=== PATIENT | female | born 1970 | race Caucasian/White ===

== ENCOUNTER 2018-06-01 08:24 | Day surgery (SDC) | payer MEDICARE ==
[~2018-06-01 08:24] MED LIST: Buffered Lidocaine 1% SYRIN* 1 ML/SYRINGE INTRADERM ONE; Dexamethasone IV* 4 MG/ML 1 ML (4 MG) IV SLOW PU ONE; Lactated Ringers 1000 ML Bag* 1,000 ML IV SCH
[2018-06-01] MEDS ORDERED: Dexamethasone IV* 4 MG/ML 1 ML (4 MG) ONE (08:31)
[2018-06-01] MEDS ORDERED: ceFAZolin 2 GM in NS PREMIX(*) 2 GM/100 ML BAG IVPB ONE (08:32)
[2018-06-01] MEDS ORDERED: Midazolam* 1 MG/ML 5 ML VIAL (5 MG) ONE (08:41)
[2018-06-01] MEDS ORDERED: fentaNYL* 50 MCG/ML 5 ML VIAL (250 MCG VIAL) ONE (08:41)
[2018-06-01] MEDS ORDERED: Lidocaine 2% PF * 5 ML VIAL ONE (08:42)
[2018-06-01] MEDS ORDERED: Propofol* 10 MG/ML 20 ML BTL ONE (08:42)
[2018-06-01] MEDS ORDERED: Rocuronium* 10 MG/ML VIAL ONE (08:42)
[2018-06-01] MEDS ORDERED: Morphine 4 MG/ML VIAL (1 ml) 4 MG/ML VIAL IV PRN (08:58)
[2018-06-01] MEDS ORDERED: Ketorolac INJ* 30 MG/ML 1 ML VIAL IV PRN (08:58)
[2018-06-01] MEDS ORDERED: Naloxone* 0.4 MG/ML 1 ML VIAL IV PRN (08:58)
[2018-06-01] MEDS ORDERED: PROCHLORPERAZINE INJ 5 MG/ML 2 ML VIAL IV PRN (08:58)
[2018-06-01] MEDS ORDERED: HYDROcodone/ACETAMIN 5-325 MG* 1 TAB PO PRN (08:58)
[2018-06-01] MEDS ORDERED: Bupivacaine 0.25% W/EPI* 10 ML SDV ONE (09:11)
[2018-06-01] MEDS ORDERED: KETAMINE HCL* 50 MG/ML 10 ML VIAL ONE (09:43)
[2018-06-01] MEDS ORDERED: Metoprolol Tartrate IV* 1 MG/ML 5 ML VIAL ONE (09:54)
[2018-06-01] MEDS ORDERED: fentaNYL* 50 MCG/ML 2 ML VIAL (100 MCG VIAL) ONE ×4 (09:57→12:12)
[2018-06-01] MEDS ORDERED: hydrALAZINE IV* 20 MG/ML VIAL ONE (10:00)
[2018-06-01] MEDS ORDERED: Neostigmine Methylsulfate* 3 MG/3 ML SYRINGE ONE (10:33)
[2018-06-01] MEDS ORDERED: Glycopyrrolate IV* 0.2 MG/ML 1 ML VIAL ONE (10:33)
[2018-06-01] MEDS ORDERED: Ondansetron INJ* 2 MG/ML VIAL ONE (10:59)
[2018-06-01] MEDS ORDERED: Ketorolac INJ* 30 MG/ML 1 ML VIAL ONE (11:42)
[2018-06-01] MEDS: fentaNYL* 50 MCG/ML 2 ML VIAL (100 MCG VIAL) IV PRN ×4 (11:45→12:29)
--- NOTE | 2018-06-01 11:48 | BRIEFOPN ---
Brief Operative Note - Surgery Procedures: Preop Diagnosis: Symptomatic cholelithiasis Postop Diagnosis: Same, chronic cholecystitis Procedure: Laparoscopic cholecystectomy Anesthesia: GET Surgeon: Flora Licensed Insurance Sales Agent: Vikas HOOVER, Jayna SCHWARZ EBL: 50 mL Specimen: Gallbladder and calculi Fluids: 1 L Drains: None Findings: Dictated
[2018-06-01] MEDS ORDERED: HYDROmorphone INJ* 0.5 MG/0.5 ML SYRINGE IV SLOW PU PRN (12:03)
[2018-06-01] MEDS ORDERED: oxyCODONE/Acetamin 5/325 MG* TAB ONE (12:22)
[2018-06-01] MEDS: oxyCODONE/Acetamin 5/325 MG* TAB PO PRN ×2 (12:23→12:24)
[2018-06-01] MEDS ORDERED: PROCHLORPERAZINE INJ 5 MG/ML 2 ML VIAL ONE (12:25)
--- NOTE | 2018-06-01 13:05 | OP ---
CC: Yassine Campo DO; Dr. Abdon Blackburn * DATE OF OPERATION: 06/01/18 - [facility] DATE OF : 68 SURGEON: Socrates Hines MD. PAID SEARCH MARKETING STRATEGIST: Prisca Bean NP and KARISHMA Morgan. ANESTHESIOLOGIST: Dr. Henderson. ANESTHESIA: General anesthesia. PRE-OP DIAGNOSIS: Chronic cholecystitis. POST-OP DIAGNOSIS: Chronic cholecystitis. OPERATIVE PROCEDURE: Diagnostic laparoscopy and laparoscopic cholecystectomy. ESTIMATED BLOOD LOSS: Minimal. FLUIDS: Minimal crystalloid fluid given. SPECIMEN: Gallbladder. DRAINS: None. DESCRIPTION OF PROCEDURE: The patient was identified in the preoperative area. Consent was signed. She was marked. I discussed the case with her again and she was taken to the operating room, placed on the operating room table in a supine position. Preoperative antibiotics were given, sequential devices were placed on bilateral lower extremities. General anesthesia was induced. The patient's abdomen was prepped and draped in the standard surgical fashion. A time-out was performed. Folds of the umbilicus were elevated anteriorly and a Veress needle inserted into the abdominal cavity, which was then allowed to insufflate to a pressure of 15 mmHg. The patient tolerated the insufflation well. An Optiview 5-mm port was then inserted in the right upper quadrant. Camera was then inserted. The Veress needle removed and a 5-mm trocar placed at the umbilicus. Review of the abdomen showed normal-appearing small bowel. The gallbladder showed mild adhesions to the omentum, but also to the duodenum. Additional trocars in the following position, a 12 mm in the subxiphoid area and a 5 mm in the right lateral positioning. Tables were repositioned to head up, right side up. We could not fully grasp the gallbladder due to a stone, but we stented this upward and sharply dissected the duodenum off the anterior aspect of the gallbladder until the silhouette, reviewed it and showed no evidence of [id number]-[id number]-[id number] injury and turned our attention to the lower aspect of the gallbladder. There was additional difficulty at grasping at this site due to chronic disease. We were able to take the peritoneum off the lateral aspect and then off the medial aspect. In the medial aspect, we did get into the gallbladder itself identifying a large stone. We extracted the stone and placed it in an endoscopic retrieval bag and placed it over the liver. It was very large. This gave us ability to look inside the infundibular portion of the gallbladder. There was no bile and no fluid, in fact only stones. These were removed as needed. We then were able to lift the infundibular region and dissect around what appeared to be the cystic duct. This was dissected down closer to where it met with the common bile duct and we had a critical view. In so doing, we did have almost all of the face of the gallbladder where the cystic duct entered was incised, but once we were able to isolate the cystic duct, we then bluntly removed the gallbladder from the liver bed. Utilizing minimal electrocautery, we were able to take this down altogether and place in an endoscopic retrieval bag. It did break off of the small cystic duct. Cystic duct was then doubly clipped and ligated. We removed that portion of it and it went with our specimen. It appeared to be only 1 duct as we cut through. The gallbladder and its contents were then placed in a second endoscopic retrieval bag. The bags were both placed over the liver and we then carried out removing the smaller stones that had escaped during the dissection. We used irrigation. There were some bleeding at the liver bed. This was controlled with electrocautery. It was more small oozing, closer to the cystic duct stump. This was minimal, but I did not feel comfortable clipping this and instead placed Surgicel at this site. Next, with the Surgicel and gauze in place at the liver bed and at the surgical site, we looked around the abdomen. No additional stones were identified. We then reviewed the anterior abdominal wall, no hernias were noted. We then placed the patient in Trendelenburg and no inguinal hernias were identified either. The sigmoid colon was mildly adhered to the iliac fossa in a possibly chronic inflammation way, but the bowel itself was soft and unremarkable. Review of the cecum showed normal-appearing bowel as well as terminal ileum. The appendix was not identified, but there was no inflammation at this site. Next, the stomach was reviewed, was within normal limits. The liver was large enough and difficult to move around, although we were not able to really bring the gallbladder up over the liver during this case anyhow due to the severe disease. It was only later we could realize that the liver was somewhat stiff, but without discrete lesion. Next, gauze was removed and a Surgicel remained in place. There was no oozing. There was no bile. I reviewed the duodenum that was dissected off the face of the gallbladder and this showed no evidence of bile or injury again. We then removed both of our endoscopic retrieval bags through the subxiphoid port site after increasing the size of this. Specimens were passed off. We irrigated this wound and reapproximated at the fascial layer with a 0-Vicryl suture. Trocars were removed under direct vision and all 4 skin incisions were reapproximated with 4-0 Monocryl subcuticular sutures followed by Steri-Strips and sterile dressing. The patient tolerated the procedure well and was transferred to the PACU in stable condition. [id number]/[facility] #: [id number] LEVI
[2018-06-01 13:38] VITALS: BP 198/88
[2018-06-01] MEDS ORDERED: HYDROcodone/ACETAMIN 5-325 MG* 1 TAB ONE (13:55)
== END 2018-06-01 14:18 | disposition home or self-care (01) ==
LOC: OR 08:24
PROVIDERS: ATTEND Surgery
DX: K80.10 Calculus of gallbladder with chronic cholecystitis without obstruction (principal); Z72.0 Tobacco use; I10 Essential (primary) hypertension; F41.9 Anxiety disorder, unspecified
CPT/HCPCS: 81025; 88304; A9270-GY; J0360; J0690; J0780; J1100; J1885; J2250; J2405; J2704; J2710; J3010; J3490